=== PATIENT | male | born 1995 | race Caucasian/White ===

== ENCOUNTER 2021-08-15 23:36 | Inpatient (IN) | payer OTHER ==
[2021-08-16] MEDS ORDERED: SODIUM CHLORIDE 0.9% 1,000 ML IV STA (00:19)
[2021-08-16] MEDS ORDERED: ACETAMINOPHEN TAB 500 MG TAB PO STA (00:20)
[2021-08-16] MEDS ORDERED: IBUPROFEN 600 MG TAB PO STA (00:20)
--- NOTE | 2021-08-16 00:31 | ED ---
Seizure HPI - General Chief Complaint: Head Injury Stated Complaint: Head Injury, Seizure Time Seen by Provider: 08/16/21 00:00 Source: patient, police, RN notes reviewed, old records reviewed Mode of arrival: ambulatory Limitations: no limitations - History of Present Illness Initial Comments: This is a 26-year-old male to the emergency today. Today presents for evaluation of a seizure. Seizure did result in head trauma and laceration head. Patient is without headache or complaints. Patient states he has had a seizure in years. He is unsure of cause of seizures he has not been on medication for multiple years prior to his last seizure. Patient has been incarcerated for the last 2 months without significant incident MD Complaint: seizure -: minutes(s) Description of Episode: loss of consciousness, tonic-clonic movement, post-event confusion -: second(s) Witnessed: yes - by bystander Trauma: No Seizure History: known seizure disorder Place: other ([facility]) Possible Precipitating Event: head injury Treatments Prior to Arrival: none - Related Data Allergies Allergy/AdvReac Type Severity Reaction Status Date / Time No Known Allergies Allergy Verified 08/15/21 23:45 Review of Systems ROS Statement: Those systems with pertinent positive or pertinent negative responses have been documented in the HPI. ROS Other: All systems not noted in ROS Statement are negative. Past Medical History Past Medical History: Seizure Disorder History of Any Multi-Drug Resistant Organisms: None Reported Past Surgical History: No Surgical Hx Reported Past Psychological History: ADD/ADHD, Bipolar Smoking Status: Current every day smoker Past Alcohol Use History: None Reported Past Drug Use History: None Reported General Exam Limitations: no limitations General appearance: alert, in no apparent distress Head exam: Present: atraumatic, normocephalic, normal inspection Eye exam: Present: normal appearance, PERRL, EOMI. Absent: scleral icterus, conjunctival injection, periorbital swelling ENT exam: Present: normal exam, mucous membranes moist Neck exam: Present: normal inspection. Absent: tenderness, meningismus, lymphadenopathy Respiratory exam: Present: normal lung sounds bilaterally. Absent: respiratory distress, wheezes, rales, rhonchi, stridor Cardiovascular Exam: Present: regular rate, normal rhythm, normal heart sounds. Absent: systolic murmur, diastolic murmur, rubs, gallop, clicks GI/Abdominal exam: Present: soft, normal bowel sounds. Absent: distended, tenderness, guarding, rebound, rigid Extremities exam: Present: normal inspection, full ROM, normal capillary refill. Absent: tenderness, pedal edema, joint swelling, calf tenderness Back exam: Present: normal inspection Neurological exam: Present: alert, oriented X3, CN II-XII intact Psychiatric exam: Present: normal affect, normal mood Skin exam: Present: warm, dry, intact, normal color. Absent: rash Course Vital Signs 08/15/21 08/16/21 23:39 03:05 Temperature 102.2 F H 99.2 F Pulse Rate 91 89 Respiratory 20 18 Rate Blood Pressure 122/81 122/63 O2 Sat by Pulse 95 96 Oximetry - Reevaluation(s) Reevaluation #1: 08/16/21 02:12 Medical record is reviewed Reevaluation #2: 08/16/21 02:12 Patient is snf does have positive coronavirus and he has been exposed Reevaluation #3: 08/16/21 04:15 Patient as well as PD here in the emergency department are informed of his prognosis and plan Reevaluation #4: 08/16/21 04:16 Patient did have to recurrent seizures here in the ER without return to normal in between - Consultations Consultation #1: Spoke with Dr. Downing agrees to admit this patient Medical Decision Making - Medical Decision Making 26 male to the emergency department today. Patient will be admitted for recurrent seizures here in the ER. Patient originally presented with seizure minor head trauma and was found of coronavirus prior to arrival and then patient prior to discharge had 2 seizures back to back without return to consciousness here in the emergency department. Patient currently awake alert will be admitted for seizure evaluation monitoring of coronavirus - Lab Data Result diagrams: 08/16/21 01:13 08/16/21 01:13 Lab Results 08/16/21 08/16/21 08/16/21 Range/Units 00:19 01:13 01:13 WBC 4.0 (3.8-10.6) k/uL RBC 5.37 (4.30-5.90) m/uL Hgb 16.5 (13.0-17.5) gm/dL Hct 45.7 (39.0-53.0) % MCV 85.0 (80.0-100.0) fL MCH 30.7 (25.0-35.0) pg MCHC 36.1 (31.0-37.0) g/dL RDW 12.4 (11.5-15.5) % Plt Count 108 L (150-450) k/uL MPV 11.1 Neutrophils % (Manual) 67 % Lymphocytes % (Manual) 17 % Monocytes % (Manual) 16 % Neutrophils # (Manual) 2.68 (1.3-7.7) k/uL Lymphocytes # (Manual) 0.68 L (1.0-4.8) k/uL Monocytes # (Manual) 0.64 (0-1.0) k/uL Nucleated RBCs 0 (0-0) /100 WBC Manual Slide Review Performed Hyperchromasia Slight Sodium (137-145) mmol/L Potassium (3.5-5.1) mmol/L Chloride (98-107) mmol/L Carbon Dioxide (22-30) mmol/L Anion Gap mmol/L BUN (9-20) mg/dL Creatinine (0.66-1.25) mg/dL Est GFR (CKD-EPI)AfAm (>60 ml/min/1.73 sqM) Est GFR (CKD-EPI)NonAf (>60 ml/min/1.73 sqM) Glucose (74-99) mg/dL Calcium (8.4-10.2) mg/dL Magnesium 1.7 (1.6-2.3) mg/dL Total Bilirubin (0.2-1.3) mg/dL AST (17-59) U/L ALT (4-49) U/L Alkaline Phosphatase (38-126) U/L C-Reactive Protein (<1.0) mg/dL Total Protein (6.3-8.2) g/dL Albumin (3.5-5.0) g/dL Urine Color Light Yellow Urine Appearance Clear (Clear) Urine pH 5.5 (5.0-8.0) Ur Specific [place] 1.008 (1.001-1.035) Urine Protein Negative (Negative) Urine Glucose (UA) Negative (Negative) Urine Ketones Negative (Negative) Urine Blood Negative (Negative) Urine Nitrite Negative (Negative) Urine Bilirubin Negative (Negative) Urine Urobilinogen <2.0 (<2.0) mg/dL Ur Leukocyte Esterase Negative (Negative) Salicylates mg/dL Urine Opiates Screen Not Detected (NotDetected) Ur Oxycodone Screen Not Detected (NotDetected) Urine Methadone Screen Not Detected (NotDetected) Ur Propoxyphene Screen Not Detected (NotDetected) Acetaminophen ug/mL Ur Barbiturates Screen Not Detected (NotDetected) U Tricyclic Antidepress Not Detected (NotDetected) Ur Phencyclidine Scrn Not Detected (NotDetected) Ur Amphetamines Screen Not Detected (NotDetected) U Methamphetamines Scrn Not Detected (NotDetected) U Benzodiazepines Scrn Not Detected (NotDetected) Urine Cocaine Screen Not Detected (NotDetected) U Marijuana (THC) Screen Not Detected (NotDetected) Serum Alcohol mg/dL Coronavirus (PCR) (Not Detectd) 08/16/21 08/16/21 Range/Units 01:13 02:00 WBC (3.8-10.6) k/uL RBC (4.30-5.90) m/uL Hgb (13.0-17.5) gm/dL Hct (39.0-53.0) % MCV (80.0-100.0) fL MCH (25.0-35.0) pg MCHC (31.0-37.0) g/dL RDW (11.5-15.5) % Plt Count (150-450) k/uL MPV Neutrophils % (Manual) % Lymphocytes % (Manual) % Monocytes % (Manual) % Neutrophils # (Manual) (1.3-7.7) k/uL Lymphocytes # (Manual) (1.0-4.8) k/uL Monocytes # (Manual) (0-1.0) k/uL Nucleated RBCs (0-0) /100 WBC Manual Slide Review Hyperchromasia Sodium 135 L (137-145) mmol/L Potassium 4.1 (3.5-5.1) mmol/L Chloride 100 (98-107) mmol/L Carbon Dioxide 24 (22-30) mmol/L Anion Gap 11 mmol/L BUN 11 (9-20) mg/dL Creatinine 0.81 (0.66-1.25) mg/dL Est GFR (CKD-EPI)AfAm >90 (>60 ml/min/1.73 sqM) Est GFR (CKD-EPI)NonAf >90 (>60 ml/min/1.73 sqM) Glucose 108 H (74-99) mg/dL Calcium 9.4 (8.4-10.2) mg/dL Magnesium (1.6-2.3) mg/dL Total Bilirubin 0.7 (0.2-1.3) mg/dL AST 28 (17-59) U/L ALT 21 (4-49) U/L Alkaline Phosphatase 70 (38-126) U/L C-Reactive Protein 5.4 H (<1.0) mg/dL Total Protein 7.1 (6.3-8.2) g/dL Albumin 4.5 (3.5-5.0) g/dL Urine Color Urine Appearance (Clear) Urine pH (5.0-8.0) Ur Specific [place] (1.001-1.035) Urine Protein (Negative) Urine Glucose (UA) (Negative) Urine Ketones (Negative) Urine Blood (Negative) Urine Nitrite (Negative) Urine Bilirubin (Negative) Urine Urobilinogen (<2.0) mg/dL Ur Leukocyte Esterase (Negative) Salicylates <1.0 mg/dL Urine Opiates Screen (NotDetected) Ur Oxycodone Screen (NotDetected) Urine Methadone Screen (NotDetected) Ur Propoxyphene Screen (NotDetected) Acetaminophen <10.0 ug/mL Ur Barbiturates Screen (NotDetected) U Tricyclic Antidepress (NotDetected) Ur Phencyclidine Scrn (NotDetected) Ur Amphetamines Screen (NotDetected) U Methamphetamines Scrn (NotDetected) U Benzodiazepines Scrn (NotDetected) Urine Cocaine Screen (NotDetected) U Marijuana (THC) Screen (NotDetected) Serum Alcohol <10 mg/dL Coronavirus (PCR) Detected A (Not Detectd) - Radiology Data Radiology results: report reviewed (CT brain C-spine chest x-ray are negative for acute disease), image reviewed Critical Care Time Critical Care Time: Yes Total Critical Care Time: 31 Disposition Clinical Impression: Concussion without loss of consciousness, Coronavirus infection, Fever, Occipital scalp laceration, Status epilepticus Disposition: ADMITTED IP TO THIS [facility] Condition: Fair Instructions (If sedation given, give patient instructions): Seizure/Epilepsy Discharge Instructions & Follow-Up Is patient prescribed a controlled substance at d/c from ED?: No Referrals: None,Stated [Primary Care Provider] - 1-2 days
--- NOTE | 2021-08-16 01:34 | XR ---
EXAMINATION TYPE: XR chest 1V DATE OF EXAM: 08/16/2021 COMPARISON: NONE HISTORY: Cough. Seizure TECHNIQUE: Single view FINDINGS: Heart and mediastinum are normal. Lungs are clear. Diaphragm is normal. Bony thorax appears normal. IMPRESSION: Normal chest.
--- NOTE | 2021-08-16 01:35 | CT ---
EXAMINATION TYPE: CT brain cspine wo con DATE OF EXAM: 08/16/2021 COMPARISON: None HISTORY: seizure CT DLP: 1339.2 mGycm Automated exposure control for dose reduction was used. Ventricles have normal size. There is no mass effect nor midline shift. There is no sign of intracran ial hemorrhage. Calvarium is intact. There is no evidence of cerebral edema. Skull base is intact. Th ere is normal aeration of the mastoid sinuses. The cervical vertebra show some mild straightening. Disc spaces are normal. Posterior elements are in tact. Facet joints are intact. Prevertebral soft tissues appear normal. IMPRESSION: Negative CT scan of the brain. Negative CT scan cervical spine.
[2021-08-16 02:07] LABS: ALT 21 U/L (4-49); AST 28 U/L (17-59); Acetaminophen <10.0 ug/mL; African American GFR (CKD) >90 (>60 ml/min/1.73 sqM); Albumin 4.5 g/dL (3.5-5.0); Alcohol <10 mg/dL; Alkaline Phosphatase 70 U/L (38-126); Anion Gap 11 mmol/L; Blood Urea Nitrogen 11 mg/dL (9-20); C Reactive Protein 5.4 mg/dL (<1.0); Calcium 9.4 mg/dL (8.4-10.2); Carbon Dioxide 24 mmol/L (22-30); Chloride 100 mmol/L (98-107); Glucose 108 mg/dL (74-99); Non-African American GFR(CKD) >90 (>60 ml/min/1.73 sqM); Potassium 4.1 mmol/L (3.5-5.1); Salicylate <1.0 mg/dL; Sodium 135 mmol/L (137-145); Total Bilirubin 0.7 mg/dL (0.2-1.3); Total Protein 7.1 g/dL (6.3-8.2)
[2021-08-16 02:12] LABS: Appearance,Urine Clear (Clear); Bilirubin,Urine Negative (Negative); Blood,Urine Negative (Negative); Color,Urine Light Yellow; Glucose,Urine (UA) Negative (Negative); Ketones,Urine Negative (Negative); Leukocyte Esterase,Urine Negative (Negative); Nitrite,Urine Negative (Negative); PH, Urine 5.5 (5.0-8.0); Protein,Urine Negative (Negative); Specific Gravity,Urine 1.008 (1.001-1.035); Urobilinogen,Urine <2.0 mg/dL (<2.0)
[2021-08-16 02:13] LABS: HCT 45.7 % (39.0-53.0); HGB 16.5 gm/dL (13.0-17.5); Hyperchromasia Slight; MCH 30.7 pg (25.0-35.0); MCHC 36.1 g/dL (31.0-37.0); Mean Platelet Volume 11.1; Platelet Count 108 k/uL (150-450); RBC 5.37 m/uL (4.30-5.90); RDW 12.4 % (11.5-15.5)
[2021-08-16 02:43] LABS: Amphetamine Screen,Urine Not Detected (NotDetected); Barbiturate Screen,Urine Not Detected (NotDetected); Benzodiazepines Screen,Urine Not Detected (NotDetected); Cocaine Screen,Urine Not Detected (NotDetected); Methadone Screen, Urine Not Detected (NotDetected); Opiate Screen,Urine Not Detected (NotDetected); Oxycodone Screen, Urine Not Detected (NotDetected); Phencyclidine Screen,Urine Not Detected (NotDetected); Tricyclic Antidepressant,Urine Not Detected (NotDetected); Urn Cannabinoid Scrn Not Detected (NotDetected)
[2021-08-16 03:16] LABS: Lymphocytes # (M) 0.68 k/uL (1.0-4.8); Monocytes # (M) 0.64 k/uL (0-1.0); Neutrophils # (M) 2.68 k/uL (1.3-7.7); Neutrophils % (M) 67 %; Nucleated Red Blood Cells 0 /100 WBC (0-0); Total Cells Counted 100
[2021-08-16] MEDS ORDERED: levETIRAcetam IV 1,500 MG in SALINE 1 100ML.BAG IVPB STA (03:30)
[2021-08-16] MEDS ORDERED: LORazepam 2 MG/ML INJ IV STA (03:30)
[2021-08-16] MEDS ORDERED: NALOXONE 0.4 MG/ML 1 ML VIAL IV PRN (04:11)
[2021-08-16] MEDS ORDERED: LORazepam 2 MG/ML INJ IV PRN (04:11)
[2021-08-16] MEDS ORDERED: SODIUM CHLORIDE 0.9% 1,000 ML IV SCH (04:15)
--- NOTE | 2021-08-16 11:21 | P.CNNES ---
History of Present Illness Consult date: 08/16/21 Requesting physician: Rios Montero Reason for Consult: Seizure History of Present Illness: Patient is a 26-year-old male, who is currently incarcerated in detention, was brought to the hospital by police to the hospital last night at 11:36 PM for evaluation for seizures. Patient apparently had a seizure in the detention, where he fell, hit his head producing a 4 cm laceration in the occipital region. Medical Research Assistant has reported the seizure lasted for 30 seconds. He was brought to the hospital. Patient had 2 seizures in the ER witnessed by the staff, each lasting for 30 seconds followed by postictal state. Patient was loaded with Keppra 1500 mg IV followed by 1000 mg twice a day. Patient has not had any seizures since then. Now he is alert and awake. Patient's vitals on arrival blood pressure 122/81, pulse is 91, temperature 102.2. Blood test shows normal WBC and hemoglobin. Platelets are slightly low 108. Sodium 135 potassium 4.1, hepatic panel normal. UA negative, urine drug screen negative. Blood alcohol level negative. Coronavirus PCR positive. Chest x-ray is normal. CT of the head and cervical spine are normal. Patient states he had first seizure when he was in fifth grade. He was placed on some seizure medication, the name which she does not remember at all. He continued seizure medications for 3 years and then stopped taking it when he was in eighth grade. He has been without seizure medication since then. He used to see a neurologist but has not seen one for number of years. Patient states his last seizure was 1-1/2 years ago. He states that before seizure, he loses his vision and hearing and then he falls down. He does not have any convulsion. Does not bite his tongue or lose control of urine. Patient states that he used to have seizures about 2 times a month but now are occurring much less frequently, as he has not had any seizure for last 1-1/2 years. Patient states his mother also suffers from seizure disorder. He drinks couple beers a week, smokes one pack per day for last 3 years. Does not do any drugs. He has been in detention for last 2 months. Review of Systems Denies headache problem with the vision, hoarseness. He does have cough and some shortness of breath. Patient has some congestion. Denies any abdominal pain nausea vomiting diarrhea. Past Medical History Past Medical History: Seizure Disorder History of Any Multi-Drug Resistant Organisms: None Reported Past Surgical History: No Surgical Hx Reported Past Psychological History: ADD/ADHD, Bipolar Smoking Status: Current every day smoker Past Alcohol Use History: None Reported Past Drug Use History: None Reported - Past Family History Mother Family Medical History: No Reported History Medications and Allergies Home Medications Medication Instructions Recorded Confirmed Type Bacitracin Zinc Oint 1 applic TOPICAL BID #28 gm 08/16/21 Rx levETIRAcetam [Keppra] 750 mg PO Q12HR #60 tab 08/16/21 Rx Allergies Allergy/AdvReac Type Severity Reaction Status Date / Time No Known Allergies Allergy Verified 08/16/21 07:42 Physical Examination - Vital Signs Vital Signs: Vital Signs Temp Pulse Resp BP Pulse Ox 08/16/21 07:00 52 L 16 104/65 98 08/16/21 06:00 59 L 18 111/67 98 08/16/21 05:00 56 L 18 118/69 95 08/16/21 04:00 62 16 120/70 98 08/16/21 03:32 98.2 F 59 L 20 122/63 99 08/16/21 03:05 99.2 F 89 18 122/63 96 08/15/21 23:39 102.2 F H 91 20 122/81 95 Intake and Output 08/15/21 08/16/21 08/16/21 22:59 06:59 14:59 Other: Weight 78.925 kg Patient is a young male, in no acute distress. He has a flat affect. Patient is alert awake, states it is May and the year is 2020. He knows he is in the hospital and that he is actually in detention. Patient has cuff on his left ankle. Speech and language functions are normal. Attention, concentration and fund of knowledge is adequate. Detailed testing deferred. On cranial examination, pupils are round and reacting to light, visual flores are full on confrontation, with no neglect on double simultaneous stimulation. His extraocular muscles are intact with no nystagmus. Face is symmetric, tongue protrudes to the midline. Palatal elevation and sensation normal, hearing and shoulder shrug normal, facial sensation normal. Shoulder shrug normal. No evidence of tongue laceration. On muscle strength testing, there is no pronator drift and the strength is normal in arms and legs distally and proximally. Deep tendon reflexes are 1+ in the upper limbs, 2 in the lower limbs and plantars downgoing. No clonus. Sensory to touch is equal with no neglect. Cerebellar function showed no ataxia for [id number] testing. No dysdiadochokinesia. Tone and bulk of muscles normal. Gait not checked. On general examination, abdomen is soft nontender. Peripheral pulses are present. No edema. Results - Laboratory Findings CBC and BMP: 08/16/21 01:13 08/16/21 01:13 Abnormal Lab Findings: Abnormal Labs 08/16/21 08/16/21 08/16/21 01:13 01:13 02:00 Plt Count 108 L Lymphocytes # (Manual) 0.68 L Sodium 135 L Glucose 108 H C-Reactive Protein 5.4 H Coronavirus (PCR) Detected A Assessment and Plan Assessment: * Seizure disorder since being in fifth grade, came with breakthrough seizure while being incarcerated in detention. Patient has been off seizure medication for last several years. * Scalp laceration due to fall from seizure. * Covid-19 positive. Plan: * Patient will undergo EEG today. * Continue Keppra 1000 mg twice a day. * Patient at present is incarcerated in detention for uncertain duration of time. He was still informed of [place] state law of no driving unless seizure free for 6 months, climbing ladders, operate dangerous machinery or unsupervised swimming. Addendum: EEG was performed, which is normal EEG during wakefulness, drowsiness and stage II sleep. No focal, lateralized or epileptiform activity was seen. Slightly excessive low voltage fast frequency beta suggestive of medication effect. Patient will be discharged on Keppra 750 mg twice a day. Patient will follow up with neurologist Dr. Goode as outpatient.
--- NOTE | 2021-08-16 15:11 | EEG ---
ELECTROENCEPHALOGRAM REPORT DATE OF SERVICE: 08/16/2021 PREAMBLE: This is a 26-year-old male with seizure disorder. EEG FINDINGS: This is a 21-channel digital EEG recorded with video component utilizing 10/20 international system with referential and bipolar montages. Background consists of well developed, well regulated, moderate voltage activity in 8-9 hertz alpha. Background is posterior-dominant and reactive to eye opening and closing. Photic stimulation was not performed. Hyperventilation was not done. Frequent fast frequency low-voltage beta activity was also seen periodically. Stage 2 sleep was attained with presence of sleep spindles. No focal or generalized epileptiform activity was seen. IMPRESSION: This is a normal EEG during wakefulness, drowsiness and stage 2 sleep. No focal or generalized epileptiform activity was seen. Slightly excessive low-voltage fast frequency beta is suggestive of medication effect. MMRAL / JUANITO: [id number] /
--- NOTE | 2021-08-16 15:11 | P.HPIM ---
History of Present Illness H&P Date: 08/16/21 Chief Complaint: Seizure This is a pleasant 26-year-old patient is currently in the local residential. Patient does have a family doctor out of the area. Patient states that the age of the 4 was diagnosed with seizures. Started the age of 9 and he stopped taking medications. As he felt he had grown out of it. He had a breakthrough seizures about a year and a half ago. Now is presenting with a seizure in the GI. Apparently he had 2 more episodes in the ER. The episode at the residential patient fell and had a laceration on the scalp. Patient also was found to have positive for COVID-19. Patient has not taken the COVID-19 vaccination. Has a very slight cough. No shortness of breath. No loss of taste or smell. Patient in the residential for last 2 months. Review of systems: GEN.: Tired EYES: None HEENT: None NECK: None RESPIRATORY: As above CARDIOVASCULAR: None GASTROINTESTINAL: None GENITOURINARY: None MUSCULOSKELETAL: None LYMPHATICS: None HEMATOLOGICAL: None PSYCHIATRY: None NEUROLOGICAL: As above Past medical history to include: Epilepsy Social history: Patient currently in the residential for 2 months. Was smoking a pack a day. About 2 beers a day. 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 Was living with his mother. Family history: Reviewed, noncontributory to presentation Physical examination: VITAL SIGNS: 102.2, 91, 20, 122/81, 95% room air on presentation GENERAL: BMI 25.7, laying in bed, awake. Patient has ankle cuffs EYES: Pupils equal. Conjunctiva normal. HEENT: External appearance of nose and ears normal, oral cavity grossly normal laceration of the back of the scalp with edith with some dried blood. NECK: JVD not raised; masses not palpable. HEART: First and second heart sounds are normal; no edema. LUNGS: Respiratory rate normal; clear to auscultation. ABDOMEN: Soft, nontender, liver spleen not palpable, no masses palpable. PSYCH: Alert and oriented x3; mood and affect normal. NEUROLOGICAL: Cranial nerves grossly intact; no facial asymmetry, power and sensation grossly intact. LYMPHATICS: No lymph nodes palpable in the axilla and neck INVESTIGATIONS, reviewed in the clinical context: WBC 4 hemoglobin 16.5 platelets 108 lymphocytes 0.68 sodium 135 potassium 4.1 creatinine 0.81 UA: Negative Urine drug screen: Negative Coronavirus [PCR]: Detected Computed tomography scan of the brain and C-spine without contrast: Negative Chest x-ray film: Negative personally reviewed by me Assessment and plan: -Breakthrough epilepsy with seizures Patient was diagnosed with epilepsy at age of 4. Took medications up to the age of 9. When he decided to discontinue the same. He had a breakthrough episode about a year and a half ago. Patient had 3 episodes yesterday. Keppra thousand milligrams twice a day. Seizure precautions. EEG. Neurology consultation. -Scalp laceration secondary to fall edith. Bacitracin ointment -Mild COVID-19 infection. Patient's chest x-ray is unremarkable. Minimal restless symptoms. Pulse ox is good. Keppra thousand milligrams twice a day. Seizure precautions. EEG. Past Medical History Past Medical History: Seizure Disorder History of Any Multi-Drug Resistant Organisms: None Reported Past Surgical History: No Surgical Hx Reported Past Psychological History: ADD/ADHD, Bipolar Smoking Status: Current every day smoker Past Alcohol Use History: None Reported Past Drug Use History: None Reported Medications and Allergies Home Medications Medication Instructions Recorded Confirmed Type No Known Home Medications 08/16/21 08/16/21 History Allergies Allergy/AdvReac Type Severity Reaction Status Date / Time No Known Allergies Allergy Verified 08/16/21 07:42 Physical Exam Vitals: Vital Signs Temp Pulse Resp BP Pulse Ox 08/16/21 09:03 98.0 F 57 L 17 110/70 98 08/16/21 07:00 52 L 16 104/65 98 08/16/21 06:00 59 L 18 111/67 98 08/16/21 05:00 56 L 18 118/69 95 08/16/21 04:00 62 16 120/70 98 08/16/21 03:32 98.2 F 59 L 20 122/63 99 08/16/21 03:05 99.2 F 89 18 122/63 96 08/15/21 23:39 102.2 F H 91 20 122/81 95 Intake and Output 08/15/21 08/16/21 08/16/21 22:59 06:59 14:59 Other: Weight 78.925 kg Results CBC & Chem 7: 08/16/21 01:13 08/16/21 01:13 Labs: Abnormal Lab Results - Last 24 Hours (Table) 08/16/21 08/16/21 08/16/21 Range/Units 01:13 01:13 02:00 Plt Count 108 L (150-450) k/uL Lymphocytes # (Manual) 0.68 L (1.0-4.8) k/uL Sodium 135 L (137-145) mmol/L Glucose 108 H (74-99) mg/dL C-Reactive Protein 5.4 H (<1.0) mg/dL Coronavirus (PCR) Detected A (Not Detectd)
[2021-08-16] MEDS ORDERED: BACITRACIN OINT 1 EACH PACKET TOPICAL SCH (16:00)
[2021-08-16] MEDS ORDERED: levETIRAcetam IV 1,000 MG in SALINE 1 100ML.BAG IVPB SCH (16:00)
[2021-08-16 16:01] VITALS: BP 121/72; PULSE 74; RESP 16; TEMP 100
--- NOTE | 2021-08-16 18:22 | P.DS ---
Providers Date of admission: 08/16/21 04:11 Expected date of discharge: 08/16/21 Attending physician: Dilip Downing Consults: 08/16/21 04:11 Consult Physician Routine Consulting Provider: Renato Vo Consult Reason/Comments: sz Do you want consulting provider notified?: Yes Primary care physician: Stated None Hospital Course: Chief Complaint: Seizure This is a pleasant 26-year-old patient is currently in the local nursing home. Patient does have a family doctor out of the area. Patient states that the age of the 4 was diagnosed with seizures. Started the age of 9 and he stopped taking medications. As he felt he had grown out of it. He had a breakthrough seizures about a year and a half ago. Now is presenting with a seizure in the GI. Apparently he had 2 more episodes in the ER. The episode at the nursing home patient fell and had a laceration on the scalp. Patient also was found to have positive for COVID-19. Patient has not taken the COVID-19 vaccination. Has a very slight cough. No shortness of breath. No loss of taste or smell. Patient in the nursing home for last 2 months. Care was discussed with Dr. Hope from neurology. Patient be discharged and sent 50 mg twice a day of Keppra. Follow-up with neurology outpatient. Seizure precautions. COVID-19 precautions. Patient has his own PCP should follow up with him. Consultation: Dr. Hope from neurology Past medical history to include: Epilepsy Social history: Patient currently in the nursing home for 2 months. Was smoking a pack a day. About 2 beers a day. 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 Was living with his mother. Family history: Reviewed, noncontributory to presentation Physical examination: VITAL SIGNS: 98.7, 79, 18, 1:30/77, 98% room air GENERAL: BMI 25.7, laying in bed, awake. Patient has ankle cuffs EYES: Pupils equal. Conjunctiva normal. HEENT: External appearance of nose and ears normal, oral cavity grossly normal laceration of the back of the scalp with edith with some dried blood. NECK: JVD not raised; masses not palpable. HEART: First and second heart sounds are normal; no edema. LUNGS: Respiratory rate normal; clear to auscultation. ABDOMEN: Soft, nontender, liver spleen not palpable, no masses palpable. PSYCH: Alert and oriented x3; mood and affect normal. INVESTIGATIONS, reviewed in the clinical context: EEG: No epileptiform activity observed WBC 4 hemoglobin 16.5 platelets 108 lymphocytes 0.68 sodium 135 potassium 4.1 creatinine 0.81 UA: Negative Urine drug screen: Negative Coronavirus [PCR]: Detected Computed tomography scan of the brain and C-spine without contrast: Negative Chest x-ray film: Negative personally reviewed by me Assessment and plan: -Breakthrough epilepsy with seizures Patient was diagnosed with epilepsy at age of 4. Took medications up to the age of 9. When he decided to discontinue the same. He had a breakthrough episode about a year and a half ago. Patient had 3 episodes yesterday. Keppra thousand milligrams twice a day. Seizure precautions. EEG-unremarkable. Neurology follow-up as outpatient -Scalp laceration secondary to fall edith. Bacitracin ointment -Mild COVID-19 infection. Patient's chest x-ray is unremarkable. Minimal respiratory symptoms. Pulse ox is good. Disposition: Senior Care Plan - Discharge Summary Discharge Rx Participant: No New Discharge Prescriptions: New Bacitracin Zinc Oint 1 applic TOPICAL BID #28 gm levETIRAcetam [Keppra] 750 mg PO Q12HR #60 tab Discharge Medication List Bacitracin Zinc Oint 1 applic TOPICAL BID #28 gm 08/16/21 [Rx] levETIRAcetam [Keppra] 750 mg PO Q12HR #60 tab 08/16/21 [Rx] Follow up Appointment(s)/Referral(s): PCP-dr dimitry [Other] - 1 Week Meghna Nguyen MD [Medical Doctor] - 2 Weeks Patient Instructions/Handouts: Seizure/Epilepsy Discharge Instructions & Follow-Up Activity/Diet/Wound Care/Special Instructions: No automotive driving until further notice. Patient is to follow-up with neurology for that. Seizure precautions COVID-19 discharge instructions
== END 2021-08-16 18:10 | disposition other institution (70) | DRG 179 ==
LOC: EC 23:36 → 4SSUR 08-16 04:11
PROVIDERS: ADMIT Hospitalist; ATTEND Hospitalist
DX: U07.1 COVID-19 (principal); G40.901 Epilepsy, unspecified, not intractable, with status epilepticus; F31.9 Bipolar disorder, unspecified; S06.0X0A Concussion without loss of consciousness, initial encounter; F90.9 Attention-deficit hyperactivity disorder, unspecified type; S01.01XA Laceration without foreign body of scalp, initial encounter; W19.XXXA Unspecified fall, initial encounter
CPT/HCPCS: 36415; 70450; 71045; 72125; 80053; 80143; 80179; 80306; 80320; 81003; 83735; 85025; 86140; 87635; 95819; 96361; 96374; 99291